=== PATIENT | female | born 1995 | race Caucasian/White ===

== ENCOUNTER 2017-02-08 02:12 | Emergency (ER) | payer OTHER ==
[~2017-02-08] VITALS: Ht 165.1 cm; Wt 57.6 kg
[2017-02-08 02:15] VITALS: TEMP 36.7; Ht 165.1 cm; Wt 57.6 kg
--- NOTE | 2017-02-08 02:20 | EMERGENCY ROOM VISIT NOTE ---
History Report prepared by Dana: Arley Reddy Under the Supervision of: Dr. Sen Draper M.D. First contact with patient: 02:14 Chief Complaint: UNRESPONSIVE Stated Complaint: UNRESPONSIVE History of Present Illness The patient is an 20 year old female who presents to the Emergency Room with complaints of an alcohol overdose. This history is limited secondary to the patient's intoxication. Per the patient's friend, she was found unresponsive outside of [facility] when she found her. She called EMS after. Before EMS arrived, they were able to arouse her enough to have her vomit. She does not think she was drugged or hurt in anyway. Source of History: friend History Limited By: intoxication Onset: tonight Position: other (global) Symptom Intensity: moderate Quality: other (ETOH) Timing: constant Review of Systems ROS is limited secondary to the patient's intoxication. Past Medical & Surgical Unable to obtain secondary to the patient's intoxication. Family History Unable to obtain secondary to the patient's intoxication. Social History Alcohol Use: occasionally Occupation Status: [employer] student Unable to obtain secondary to the patient's intoxication. Current/Historical Medications Unable to Obtain Active Prescriptions or Reported Meds Physical Exam Vital Signs Date Time Temp Pulse Resp B/P (MAP) Pulse Ox O2 Delivery O2 Flow Rate FiO2 02/08/17 05:05 82 17 98 Room Air 02/08/17 05:00 100/52 02/08/17 04:35 65 15 96 02/08/17 04:30 104/50 02/08/17 04:05 59 16 94 02/08/17 04:00 90/47 02/08/17 03:47 62 15 95 Room Air 02/08/17 03:30 94/47 02/08/17 03:17 60 16 94 02/08/17 03:12 59 15 94 Room Air 02/08/17 03:00 94/44 02/08/17 02:54 96/50 02/08/17 02:42 60 15 93 02/08/17 02:25 61 02/08/17 02:17 109/72 02/08/17 02:15 36.7 63 16 109/72 94 Room Air Physical Exam GENERAL: Patient is heavily intoxicated. Smells of alcohol. Well appearing and in no acute distress. HEAD: No evidence of Trauma. AT/NC EYES: Injected conjunctiva. Normal EOM. Pupils equal/reactive. ENT: Mucous membranes moist, no nasal congestion, . NECK: No step-offs, no adenopathy, no meningismus, trachea is midline. LUNGS: No dyspnea. Clear to auscultation and equal bilaterally. No wheeze, no rhonchi. HEART: Regular rate and rhythm. No murmurs, rubs, gallops appreciated. ABDOMEN: Soft, nontender, bowel sounds positive, no masses appreciated, no peritonitis. BACK: No midline tenderness, no CVA tenderness EXTREMITIES: Normal motion all extremities, no cyanosis, no edema. NEUROLOGIC: Intoxicated. Obtunded, completely unresponsive except for significantly painful stimuli. SKIN: No rash, no jaundice, no diaphoresis. Medical Decision & Procedures ER Provider Diagnostic Interpretation: Radiology results and stated below per my review and radiologist interpretation: CT HEAD: No intracranial hemorrhage or skull fracture. Mild sinus disease. Radiologist: Indu Dowell M.D. Laboratory Results 02/08/17 02:24 Test 02/08/17 02:24 Anion Gap 8.0 mmol/L (3-11) Est Creatinine Clear Calc Drug Dose 24.5 ml/min Estimated GFR () 75.1 Estimated GFR (Non- 64.8 BUN/Creatinine Ratio 14.4 (10-20) Calcium Level 8.2 mg/dl (8.5-10.1) Human Chorionic Gonadotropin, Qual NEG (NEG) Ethyl Alcohol mg/dL 319.0 mg/dl (0-3) Laboratory results as reviewed by me. ED Course 0214: The patient was evaluated in room B9. A complete history and physical exam was performed. 0235: The patient's "big" informed us that the patient had struck her head multiple times on the sink while she was vomiting, becoming more unresponsive later on. The patient will be discharged when awake, alert, oriented x3, and sober. Medical Decision Differential: Alcohol Intoxication, Drug Intoxication, Electrolyte Abnormality, Trauma, Intracranial Event, Toxicological, Excited Delirium, Serotonin Syndrome , amongst other pathologies entertained. 20 yr old intoxicated female brought in by EMS after repetivie vomiting, hitting head and being unresponsive for her friends after heavy night of drinking. With head injuries reported it was felt necessary to do CT Head which was negative. Protecting airway and breathing comfortably throughout ED stay. [employer] friends slept in room with her throughout the evening. EtOH positive. Monitored and discharged when awake, alert, oriented and denies any complaints. Medication Reconcilliation Current Medication List: was personally reviewed by me Blood Pressure Screening Patient's blood pressure: Normal blood pressure Blood pressure disposition: Did not require urgent referral Impression Primary Impression: Alcohol intoxication Additional Impressions: Alcohol abuse Head injury, closed Hypokalemia Scribe Attestation The scribe's documentation has been prepared under my direction and personally reviewed by me in its entirety. I confirm that the note above accurately reflects all work, treatment, procedures, and medical decision making performed by me. Departure Information Dispostion Home / Self-Care Prescriptions Unable to Obtain Active Prescriptions or Reported Meds Referrals [facility] Forms HOME CARE DOCUMENTATION FORM, IMPORTANT VISIT INFORMATION, WORK / SCHOOL INSTRUCTIONS Patient Instructions [facility] Additional Instructions You were evaluated in emergency department for intoxication. This is a sign of Alcohol Abuse and should not be taken lightly. You had a blood alcohol level that was significantly elevated. You were vomiting prior to arrival which is likely the cause of your Low Potassium. It is important you keep a well balanced diet over the next few days. You were reported to have had a head injury. Given your heavy intoxication it was felt necessary to obtain at CT Scan of your head, which was fortunately negative. Avoid further alcohol and keep well hydrated with good sleep over the next few days to help allow your brain to heal. Over the next 24 hours keep well hydrated and eat light meals. Don't drink any more alcohol. This is important. Please discuss this visit with your Primary Care Provider, [facility] and/or your loved ones. Unless an exceptional circumstance, the Hospital DOES NOT contact anyone DURING your visit, nor is your Protected Medical Information released to anyone without your approval/request. This means we do not contact your Parents, the Police, etc. However, you will likely receive a bill from the Hospital and/or your Insurance company, which will usually be sent to the Primary Policy [place] (often one's Parents). Furthermore, as a student, your visit report will likely be sent to [facility] as your primary care provider, unless other Provider listed. If your incident was on campus, or if the Police were involved, they will often contact the University to make them aware of what happened. Often this will result in you being required to take Alcohol Education classes (ie BASICS class) . Please see information given to you at discharge regarding contact for this. If the Police were involved you will likely be cited for public intoxication. Please contact either [facility] or the [place] Police for further information. Call 911 or return to Emergency Department if you develop: Passing out, difficulty breathing, many episodes of vomiting, blood in vomit or stool, abdominal pain, fevers, or other severe symptoms. We are always here to help if you feel you need further evaluation or treatment. Problem Qualifiers
[2017-02-08 02:59] LABS: BUN/CREATININE RATIO 14.4 (10-20); CALCIUM 8.2 mg/dl (8.5-10.1); CREATININE 0.66 mg/dl (0.60-1.20); POTASSIUM 2.9 mmol/L (3.5-5.1)
[2017-02-08 03:10] LABS: PREG INTERNAL NEGATIVE QC NEG CLEAR BACKGROUND; PREG INTERNAL POSITIVE QC POS CONTROL LINE
--- NOTE | 2017-02-08 07:11 | DIAGNOSTIC IMAGING REPORT ---
CT SCAN OF THE BRAIN WITHOUT IV CONTRAST CLINICAL HISTORY: Intoxication. Head injury. COMPARISON STUDY: No priors. TECHNIQUE: Unenhanced axial CT scan of the brain is performed from the vertex to the skull base. Automated dose control exposure was utilized. A dose lowering technique was utilized adhering to the principles of ALARA. The skull base was scanned twice due to motion artifact. CT DOSE: 767.83 mGy.cm FINDINGS: Brain parenchyma: The brain parenchyma is normal in appearance. There is no hemorrhage, mass effect, or evidence of acute territorial ischemia by CT criteria. Reilly-white matter is preserved. No extra-axial fluid collection is seen. Ventricles, sulci, cisterns: Normal in configuration. Intracranial vasculature: The visualized intracranial vasculature at the skull base is normal in appearance. Calvarium: There is no depressed calvarial fracture. Sinuses and mastoids: Trace mucosal thickening is seen in the right sphenoid sinus. The remaining visualized paranasal sinuses are clear. The mastoid air cells are well pneumatized. Orbits: The bony orbits are grossly intact. IMPRESSION: No acute intracranial abnormality. Electronically signed by: Efrain Toth M.D. 02/08/2017 7:09 AM Dictated Date/Time: 02/08/2017 7:07 AM
[2017-02-08 09:58] VITALS: BP 154/110; PULSE 115; O2SAT 99
== END 2017-02-08 09:59 | disposition home or self-care (01) ==
LOC: EDBD 02:12 → C.EDB 02:13 → EDBD 02:13 → C.EDB 09:59
DX: F10.120 Alcohol abuse with intoxication, uncomplicated (principal); Y90.8 Blood alcohol level of 240 mg/100 ml or more; S09.90XA Unspecified injury of head, initial encounter; W22.09XA Striking against other stationary object, initial encounter; E87.6 Hypokalemia